=== PATIENT | male | born 1945 | race Caucasian/White ===

== ENCOUNTER 2021-01-11 10:05 | Inpatient (IN) | payer MEDICARE, MEDICAID, SELFPAY ==
[2021-01-11] VITALS (39 sets, daily range): BP systolic 60–179; BP diastolic 32–100; PULSE 88–136; RESP 13–100; TEMP 36.2–36.7; O2SAT 16–100; BMI 32.5
--- NOTE | ~2021-01-11 | US_ITS ---
EXAMINATION: US renal BI DATE: 01/12/2021 11:21 INDICATION: Elevated creatinine TECHNIQUE: Multiple ultrasound grayscale images of the kidneys were obtained. COMPARISON: None. FINDINGS: The right kidney measures 9.0 x 5.2 x 5.3 cm. The left kidney measures 11.0 x 5.5 x 4.7 cm. The kidne ys demonstrate normal echogenicity. Likely age-related mild diffuse renal cortical atrophy at both ki dneys. 4.1 cm anechoic cyst at the upper pole of the left kidney. There is a second 4.2 cm anechoic l esion at the lower pole with small amount of hypoechoic material without evident internal vascular fl ow on color Doppler along the deep margin of the lesion, unclear whether this represents debris or so lid tissue the latter which would raise concern for malignancy. There is no hydronephrosis in either kidney. No stones identified. The bladder is decompressed around a Alan catheter which limits evalu ation. IMPRESSION: 1. Likely age-related diffuse mild bilateral renal cortical atrophy. No hydronephrosis. 2. A couple approximately 4 cm anechoic cystic lesions at the left kidney. The lesion at the lower po le demonstrates a region of peripheral hypoechogenicity, unclear whether avascular debris or soft tis khadra the latter which would raise concern for renal cell carcinoma. If patient would be a surgical can didate in the setting of a renal cell carcinoma would recommend further evaluation with pre and postc ontrast MRI or CT. Reviewed, dictated and finalized at location A. IMPRESSION: 1. Likely age-related diffuse mild bilateral renal cortical atrophy. No hydron ephrosis. 2. A couple approximately 4 cm anechoic cystic lesions at the left kidney. The lesion at the lower pole demonstrates a region of peripheral hypoechogenicity, unclear whether avascular debris or soft tissue the latter which would raise co ncern for renal cell carcinoma. If patient would be a surgical candidate in the setting of a renal cell carcinoma would recommend further evaluation with pre and postcontrast MRI or CT.
--- NOTE | ~2021-01-11 | XR_ITS ---
EXAMINATION: XR chest 1V portable DATE: 01/11/2021 11:56 INDICATION: Shortness of breath. TECHNIQUE: A single frontal view of the chest was obtained. COMPARISON: PET CT 10/14/2017 FINDINGS: There are airspace opacities in the perihilar regions and lower lung zones. No pleural effu kylie or pneumothorax. Cardiomegaly is noted. IMPRESSION: 1. Airspace opacities in the perihilar regions and lower lung zones, consistent with atelectasis vers us pneumonia. 2. Cardiomegaly. Reviewed, dictated and finalized at location A. IMPRESSION: 1. Airspace opacities in the perihilar regions and lower lung zones, consistent with atelectasis versus pneumonia. 2. Cardiomegaly.
--- NOTE | ~2021-01-11 | US_ITS ---
EXAMINATION: US venous doppler [facility] DATE: 01/11/2021 15:42 INDICATION: Lower limb edema. TECHNIQUE: Grayscale ultrasound images without and with compression and Doppler ultrasound images of the bilateral lower extremity veins were obtained. COMPARISON: None. FINDINGS: The visualized portions of right common femoral vein, profunda (deep) femoral vein, femoral vein, pop liteal vein, peroneal veins, posterior tibial veins, and greater saphenous vein outflow are patent. The visualized portions of left common femoral vein, profunda femoral vein, femoral vein, popliteal v ein, peroneal veins, posterior tibial veins, and greater saphenous vein outflow are patent. IMPRESSION: 1. No deep venous thrombosis. Reviewed, dictated and finalized at location A.
--- NOTE | ~2021-01-11 | CT_ITS ---
EXAMINATION: CT brain wo con DATE: 01/11/2021 12:13 INDICATION: Altered mental status TECHNIQUE: Computed tomography (CT) of the head was performed without intravenous contrast. Sagittal and coronal reconstructions were performed. The mA was adjusted according to patient size. Iterative reconstruction technique was employed. The dose-length product was 605.33 mGy-cm. COMPARISON: None FINDINGS: Small old lacunar infarcts in the right frontal lobe waggoner radiata, the left basal ganglia extending from the lentiform nucleus across the internal capsule to the caudate nucleus, the left thalamus, th e right peritrigonal white matter and the right cerebellar hemisphere. No acute intracranial hemorrha ge, acute infarction or abnormal extra axial fluid collection. There is mild scattered white matter h ypoattenuation consistent with chronic small vessel ischemic disease. Symmetric prominence of the sul ci consistent with mild age-appropriate diffuse cerebral volume loss. Ventricles are normal and symm etric. No mass/mass effect. Changes of bilateral intraocular lens replacement. The orbits and mastoid air cells are normal. Mild mucosal thickening throughout the paranasal sinuses with dependently laye ring mucus in the left maxillary and left sphenoid sinuses. Intracranial calcified cerebral atheroscl erosis is noted. IMPRESSION: 1. A few scattered small old lacunar infarcts as detailed above. No acute intracranial process. 2. Age-related changes including mild diffuse volume loss and mild scattered white matter hypoattenua tion consistent with chronic small vessel ischemic disease. 3. Sinus disease including layering mucus in the left maxillary and sphenoid sinuses which could be s een with acute sinusitis. Reviewed, dictated and finalized at location B. IMPRESSION: 1. A few scattered small old lacunar infarcts as detailed above. No acute intra cranial process. 2. Age-related changes including mild diffuse volume loss and mild scattered wh ite matter hypoattenuation consistent with chronic small vessel ischemic diseas e. 3. Sinus disease including layering mucus in the left maxillary and sphenoid si nuses which could be seen with acute sinusitis.
[2021-01-11] MEDS: SODIUM CHLORIDE 0.9% IV 1,000 ML 999 ML IV CONT ×2 (10:05→12:34)
--- NOTE | 2021-01-11 10:12 | ECG_ITS ---
Measurements Intervals [place] Rate: 97 P: HI: 0 QRS: 3 QRSD: 101 T: 45 QT: 340 QTc: 433 Interpretive Statements ATRIAL FIBRILLATION BASELINE ARTIFACT- II, III, AVR, AVF, V1-V6 ABNORMAL ECG Electronically Signed On 01-11-2021 10:20:00 CDT by Kimani Vargas D.O.
[2021-01-11] MEDS: SODIUM CHLORIDE 0.9% IV 1,000 ML 150 ML IV CONT (10:22)
[2021-01-11 10:34] LABS: Alveolar/Arterial O2 Gradient 390.3 mmHg; Base Excess ABG -17.2 mEq/l (+/-2.0); Fractional Inspired Oxygen 100 %; HCO3 ABG 8.4 mEq/l (22.0-26.0); Oxygen Content ABG 17.8 %vol (16.0-22.0); Oxygen Saturation ABG 99.6 % (95.0-100.0); Oxyhemoglobin 98.5 % THb (90.0-100.0); PO2 ABG 302.1 mmHg (80.0-100.0); PO2 FiO2 Ratio Arterial Blood 3.02 %; Total Hemoglobin 12.3 g/dL (12.0-18.0)
[2021-01-11 10:37] LABS: PCO2 ABG 20.6 mmHg (35.0-45.0); pH ABG 7.228 (7.350-7.450)
[2021-01-11 10:38] LABS: Device NON-REBREATHER MASK; Modified Allen's Test Pass; Site Drawn LEFT RADIAL
[2021-01-11 11:00] LABS: Basophils Percent Auto 0.5 % (0.2-1.2); Eosinophils Absolute Auto 0.1 K/mm3 (0-0.3); Eosinophils Percent Auto 1.6 % (0-4.4); Hematocrit 39.1 % (42.0-52.0); Hemoglobin 12.4 g/dL (14.0-18.0); Immature Granulocyte Absolute 0.08 K/mm3 (0.00-0.031); Immature Granulocyte Percent A 1.1 % (0-0.5); Lymphocytes Absolute Auto 1.58 K/mm3 (0.9-3.2); Lymphocytes Percent Auto 21.5 % (18.3-44.2); Mean Corpuscular HGB Conc 31.7 g/dl (32-36); Mean Corpuscular Hemoglobin 29.7 pg (26-34); Mean Corpuscular Volume 93.5 fl (80-100); Mean Platelet Volume 10.7 fl (7.4-10.4); Monocytes Absolute Auto 0.9 K/mm3 (0.1-0.6); Monocytes Percent Auto 11.7 % (2.6-8.5); Neutrophils Absolute Auto 4.7 K/mm3 (1.3-6.7); Neutrophils Percent Auto 63.6 % (45.5-73.1); Platelet Count Result 158 k/mm3 (150-375); Red Blood Count 4.18 M/mm3 (4.6-6.20); Red Cell Distribution Width 18.1 % (11.5-14.5); White Blood Count 7.4 K/mm3 (4.5-10.0)
[2021-01-11 11:09] LABS: Alanine Aminotransferase 7 U/L (4-50); Albumin Level 3.5 g/dL (3.5-5.1); Alkaline Phosphatase 126 U/L (38-126); Anion Gap 16 mmol/L (8-16); Aspartate Amino Transferase 16 U/L (17-59); Bilirubin,Total 0.5 mg/dL (0.2-1.3); Blood Urea Nitrogen 77 mg/dL (9-20); Calcium 8.7 mg/dL (8.4-10.2); Carbon Dioxide 10 mmol/L (22-30); Chloride 113 mmol/L (98-107); Estimated CRCL calculation 17 ml/min; Estimated Glomerular Filt Rate 13; Glucose 237 mg/dL (65-110); Potassium 4.9 mmol/L (3.4-5.0); Prothrombin Time 13.3 Seconds (11.1-14.7); Sodium 139 mmol/L (137-145)
[2021-01-11 11:10] LABS: Lactic Acid Reflex 1.2 mmol/L (0.7-2.1)
[2021-01-11 11:21] LABS: NT Pro B Type Natriuretic Pept 5790 pg/mL (5-100); Troponin I 0.022 ng/mL (0.000-0.034)
--- NOTE | 2021-01-11 12:07 | PC.NURSE ---
Pt off floor to CT scan
[2021-01-11] MEDS: SODIUM BICARBONATE 8.4% 50 MEQ/50 ML SYRINGE IV PUSH ×2 (12:14)
[2021-01-11] MEDS: SODIUM BICARBONATE 8.4% 150 MEQ in DEXTROSE 5% 1,000 ML 950 ML 50 MEQ IV CONT (12:38)
--- NOTE | 2021-01-11 13:56 | ED.GENADULT ---
HPI - General Adult General Chief complaint: Weakness Stated complaint: alt loc Time Seen by Provider: 01/11/21 10:12 Source: patient Mode of arrival: EMS Limitations: altered mental status History of Present Illness HPI narrative: 75-year-old with a history of diabetes, hypertension, CKD was brought in from his doctor's office with complaints of altered mental status, shortness of breath. Patient states that he woke up to go to see his doctor this morning and all of a sudden started having difficulty breathing and as per the EMS patient was in a lot of consciousness. Not much of history could be obtained from the patient. Upon EMS arrival his initial blood pressure was 60/40. And SPO2 was in the 80s. Onset (ago): hour(s) (1) Associated symptoms: denies other symptoms Related Data Home Medications Medication Instructions Recorded Confirmed allopurinol 01/11/21 01/11/21 ammonium lactate applic TOPICAL 01/11/21 aspirin 01/11/21 atorvastatin 01/11/21 bumetanide 01/11/21 bumetanide 01/11/21 carbidopa-levodopa tablet 01/11/21 diltiazem HCl [Tiadylt ER] PO 01/11/21 empagliflozin [Jardiance] mg 01/11/21 insulin detemir U-100 [Levemir unit SUBCUT 01/11/21 FlexTouch U-100 Insuln] losartan 01/11/21 metoprolol tartrate 01/11/21 sitagliptin [Januvia] mg 01/11/21 Allergies Allergy/AdvReac Type Severity Reaction Status Date / Time latex Allergy Unknown Verified 01/11/21 10:17 Review of Systems Review of Systems: ROS unobtainable: Yes unobtainable due to mental status PMFSH Family History Family History Sibling Hypertension Family history of diabetes mellitus in first degree relative Mother Family history of malignant neoplasm Social History Social History Alcohol intake: never Exam Narrative: GENERAL: well-nourished, lethargic in moderate respiratory distress . HEAD: Normocephalic, atraumatic. EYES: PERRLA and EOMI. ENT: Nares clear, no rhinorrhea or epistaxis. Mucous membranes moist. NECK: Supple. CHEST: Clear to auscultation. No respiratory distress. HEART: Regular rate and rhythm. No murmur heard. Normal peripheral pulses. ABDOMEN: Soft, nontender, nondistended, normal active bowel sounds. EXTREMITIES: Normal range of motion. No edema. SKIN: Warm, dry, no rash. NEURO: No focal deficits. Alert PSYCH: Normal mood and affect. Course Course Emergency Course: Upon arrival patient was hypertensive and very lethargic I have given him 3 L of IV fluids. Patient became more alert. His blood pressure has been 110/87, 126/24, discussed with the Dr. Pulido and Dr. Lakhani patient has been stable patient should be admitted to the IMU. Vital Signs Vital signs: Vital Signs Temperature 36.2 C L 01/11/21 10:03 Pulse Rate 102 H 01/11/21 10:03 Respiratory Rate 20 01/11/21 10:03 Blood Pressure 67/44 L 01/11/21 10:03 Pulse Oximetry 100 01/11/21 10:03 Temperature 36.2 C L 01/11/21 10:03 Pulse Rate 104 H 01/11/21 13:54 Respiratory Rate 21 H 01/11/21 13:54 Blood Pressure 101/79 01/11/21 13:54 Pulse Oximetry 100 01/11/21 13:54 Medical Decision Making Vital Signs Vital Signs: Vital Signs Temperature 36.2 C L 01/11/21 10:03 Pulse Rate 102 H 01/11/21 10:03 Respiratory Rate 20 01/11/21 10:03 Blood Pressure 67/44 L 01/11/21 10:03 Pulse Oximetry 100 01/11/21 10:03 Temperature 36.2 C L 01/11/21 10:03 Pulse Rate 104 H 01/11/21 13:54 Respiratory Rate 21 H 01/11/21 13:54 Blood Pressure 101/79 01/11/21 13:54 Pulse Oximetry 100 01/11/21 13:54 Lab Data Result diagrams: 01/11/21 10:30 01/11/21 10:30 Labs: Lab Results 01/11/21 01/11/21 01/11/21 Range/Units 10:30 10:30 10:30 WBC 7.4 (4.5-10.0) K/mm3 RBC 4.18 L (4.6-6.20) M/mm3 Hgb 12.4 L (14.0-18.0) g/dL Hct 39.1 L (42.0-52.0)
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
[2021-01-11 14:08] LABS: Beta-Hydroxybutyrate/Acetoacetate 0.07 mmol/L (0.02-0.27)
[2021-01-11 14:29] LABS: Add Urine Microscopic? YES; Appearance Urine Clear (Clear); Bilirubin Urine Negative (Negative); Blood Urine Negative (Negative); Color Urine Yellow (Yellow); Glucose Urine UA 1+ mg/dL (Negative); Ketones Urine Negative (Negative); Leukocyte Esterase Ur Negative LEU/UL (Negative); Mucus Urine Rare /lpf; Nitrate Urine Negative (Negative); Protein Urine 2+ mg/dL (Negative); RBC Urine 0-2 /hpf (0-2); Specific Grav Ur 1.018 (1.001-1.035); Squamous Epithelial Cell Urine Rare /hpf (Few); Urobilinogen Urine Negative mg/dL (<2.0); WBC Urine 0-3 /hpf
--- NOTE | 2021-01-11 14:37 | PC.NURSE ---
Spoke with for update on patient
--- NOTE | 2021-01-11 16:17 | PM.CNNEP ---
Assessment and Plan Assessment and plan (1) ESME (acute kidney injury): Code(s): N17.9 - Acute kidney failure, unspecified Status: Acute Assessment and Plan: the patient has acute kidney injury. I am assuming his normal creatinine is better than this because he is on Jardiance which generally is not given if the GFR is below 20. This is most likely related to his hypotension . He could also have infection. However he does not have a fever or white count. He has some blood cultures that are pending and he is on antibiotics. He could have obstruction because he has a history of BPH. Will check a renal ultrasound. rhabdomyolysis is always a possibility as well. Will check a CPK allergic interstitial nephritis is possible because he was just in the hospital and may have gotten antibiotics. However usually hypotension is not part of this picture. Glomerulonephritis would be unusual in this clinical setting as well. To evaluate this am going to get a renal ultrasound, urine electrolytes, CPK, and cortisol level. (2) Chronic kidney disease: Code(s): N18.9 - Chronic kidney disease, unspecified Status: Acute Assessment and Plan: the patient has chronic kidney disease. He sees Dr. ayoub for this. It is likely due to diabetes and hypertension. We do not know his baseline (3) Acute hypotension: Code(s): I95.9 - Hypotension, unspecified Status: Acute Assessment and Plan: the patient has hypotension. Etiology is unclear. He probably is dehydrated. He was on diuretics at home. Possibly he is not eating very well. In addition he is on Jardiance and his blood sugars may not be perfectly well controlled so he could have some glucosuria and diuretic effect from that. we can check a cortisol level as well He is getting IV fluids. (4) Metabolic acidosis: Code(s): E87.2 - Acidosis Status: Acute Assessment and Plan: Bicarbonate level is low. Lactic acid and beta hydroxybutyrate are okay. His anion gap is 16, this is a little bit on the high side. This may be due to uremic toxins. his pH is low. He is compensating respiratory forrest adequately. His blood pressure is low and so he is getting IV fluids. If we just replace with saline his bicarbonate level is going to get worse because his bad kidneys are not going to generate bicarbonate. Therefore, he is getting a bicarbonate drip (5) Obstructive sleep apnea: Code(s): G47.33 - Obstructive sleep apnea (adult) (pediatric) Status: Chronic (6) BPH (benign prostatic hyperplasia): Code(s): N40.0 - Benign prostatic hyperplasia without lower urinary tract symptoms Status: Chronic Assessment and Plan: he has a history of this. Will check a renal ultrasound. (7) Atrial fibrillation: Code(s): I48.91 - Unspecified atrial fibrillation Status: Chronic Assessment and Plan: his heart rate is fairly well controlled right now. He has a watchman device (8) Hypertension: Code(s): I10 - Essential (primary) hypertension Status: Chronic Assessment and Plan: His blood pressure was low on admission. We will hold his antihypertensives (9) History of CVA (cerebrovascular accident): Code(s): Z86.73 - Personal history of transient ischemic attack (TIA), and cerebral infarction without residual deficits Status: Chronic Assessment and Plan: he had multiple strokes in the past related to his atrial fibrillation. Things settle down once he was on blood thinners and then converted to the watchman device. (10) Hyperlipidemia: Code(s): E78.5 - Hyperlipidemia, unspecified Status: Chronic Assessment and Plan: he is on atorvastatin at home (11) DM2 (diabetes mellitus, type 2): Code(s): E11.9 - Type 2 diabetes mellitus without complications Status: Chronic Asses
--- NOTE | 2021-01-11 16:36 | PC.NURSE ---
Called lab to add on [place] Random, CK
[2021-01-11 17:10] LABS: Creatine Kinase 54 U/L (55-170)
[2021-01-11 17:22] LABS: Troponin I 0.041 ng/mL (0.000-0.034)
[2021-01-11 17:54] LABS: Sodium Urine Random 60 meq/L
[2021-01-11 17:55] LABS: Creatinine Urine 76.6 mg/dL; Total Protein Urine Random 94 mg/dL; Ur Ttl Prot Creatinine Ratio 1.23 mg/mg (0-0.20)
[2021-01-11 18:53] LABS: Cortisol Random 7.77 ug/dL
--- NOTE | 2021-01-11 18:53 | PC.NURSE ---
Fluid order DC'd, discussed with Dr Moya
--- NOTE | 2021-01-11 20:01 | ADMGEN ---
This patient, Juve Cardona, was admitted to IMU Room 210-01. Patient/family oriented to hospital policies and general routines including ID bracelet, bed and alarms, visiting hours, pain management, procedures, bathroom and other care routines, personal items, smoking policy, room service/diet, and visiting hours. Information on how to activate the Rapid Response Team has been discussed. Patient/Family are encouraged to report perceived risks to care and to ask questions if they do not understand what they are told or what they should do.
[2021-01-11 20:28] LABS: Troponin I 0.054 ng/mL (0.000-0.034)
[2021-01-11 20:48] LABS: Glucose Point of Care 180 mg/dl (65-105)
[2021-01-11] MEDS: dilTIAZem HCL CD 180 MG CAP.ER.24H 360 MG PO (23:24)
[2021-01-11] MEDS: ACETAMINOPHEN/CODEINE (*CRX) 300/30 MG TABLET 1 TAB PO (23:24)
[2021-01-11] MEDS: CODEINE SULFATE (*CRX) 30 MG TABLET PO (23:25)
[2021-01-12] VITALS (21 sets, daily range): BP systolic 102–142; BP diastolic 61–86; PULSE 57–140; RESP 16–22; TEMP 36.1–36.7; O2SAT 95–100
[2021-01-12] MEDS: LOSARTAN POTASSIUM 100 MG TABLET PO ×2 (00:20→10:45)
[2021-01-12] MEDS: METOPROLOL TARTRATE 25 MG TABLET PO ×3 (00:22→20:08)
[2021-01-12 05:09] LABS: Basophils Percent Auto 0.5 % (0.2-1.2); Eosinophils Absolute Auto 0.2 K/mm3 (0-0.3); Eosinophils Percent Auto 2.4 % (0-4.4); Hematocrit 36.3 % (42.0-52.0); Hemoglobin 11.8 g/dL (14.0-18.0); Immature Granulocyte Absolute 0.07 K/mm3 (0.00-0.031); Immature Granulocyte Percent A 1.1 % (0-0.5); Lymphocytes Absolute Auto 1.89 K/mm3 (0.9-3.2); Lymphocytes Percent Auto 28.6 % (18.3-44.2); Mean Corpuscular HGB Conc 32.5 g/dl (32-36); Mean Corpuscular Hemoglobin 29.2 pg (26-34); Mean Corpuscular Volume 89.9 fl (80-100); Mean Platelet Volume 10.8 fl (7.4-10.4); Monocytes Absolute Auto 0.9 K/mm3 (0.1-0.6); Monocytes Percent Auto 14.2 % (2.6-8.5); Neutrophils Absolute Auto 3.5 K/mm3 (1.3-6.7); Neutrophils Percent Auto 53.2 % (45.5-73.1); Platelet Count Result 141 k/mm3 (150-375); Red Blood Count 4.04 M/mm3 (4.6-6.20); Red Cell Distribution Width 17.6 % (11.5-14.5); White Blood Count 6.6 K/mm3 (4.5-10.0)
[2021-01-12 05:26] LABS: Alanine Aminotransferase 9 U/L (4-50); Albumin Level 3.2 g/dL (3.5-5.1); Alkaline Phosphatase 115 U/L (38-126); Anion Gap 10 mmol/L (8-16); Aspartate Amino Transferase 14 U/L (17-59); Bilirubin,Total 0.4 mg/dL (0.2-1.3); Blood Urea Nitrogen 60 mg/dL (9-20); Calcium 8.4 mg/dL (8.4-10.2); Carbon Dioxide 16 mmol/L (22-30); Chloride 116 mmol/L (98-107); Estimated CRCL calculation 21 ml/min; Estimated Glomerular Filt Rate 18; Glucose 138 mg/dL (65-110); Phosphorus 4.3 mg/dL (2.5-4.5); Potassium 3.8 mmol/L (3.4-5.0); Sodium 142 mmol/L (137-145)
[2021-01-12 08:37] LABS: Glucose Point of Care 166 mg/dl (65-105)
[2021-01-12] MEDS: ATORVASTATIN 40 MG TABLET 80 MG PO (10:44)
[2021-01-12] MEDS: BUMETANIDE 0.5 MG TABLET 1.5 MG PO (10:44)
[2021-01-12] MEDS: CARBIDOPA/LEVODOPA 25/100 MG TABLET 1 TABLET PO ×3 (10:44→16:52)
[2021-01-12] MEDS: SODIUM BICARBONATE 8.4% 150 MEQ in DEXTROSE 5% 1,000 ML 950 ML 50 MEQ IV CONT (10:46)
[2021-01-12] MEDS: TIZANIDINE HCL 4 MG TABLET PO ×2 (10:46→16:52)
[2021-01-12] MEDS: allopurinoL 300 MG TABLET PO (10:47)
[2021-01-12] MEDS: ASPIRIN 81 MG ENTERIC TABLET PO (10:47)
[2021-01-12] MEDS: ACETAMINOPHEN/CODEINE (*CRX) 300/30 MG TABLET 1 TAB PO (10:52)
--- NOTE | 2021-01-12 11:00 | PM.PNNEP ---
Progress Note: A&P Assessment and Plan (1) ESME (acute kidney injury): Code(s): N17.9 - Acute kidney failure, unspecified Status: Acute Assessment and Plan: the patient has acute kidney injury. Renal ultrasound has not been done yet. Urine electrolytes are non pre renal. CPK is not elevated. This is most likely related to his hypotension . Infection could be playing a role as well. He is on antibiotics. Cultures are pending. Will continue to give IV fluids. (2) Chronic kidney disease: Code(s): N18.9 - Chronic kidney disease, unspecified Status: Acute Assessment and Plan: the patient has chronic kidney disease. He sees Dr. ayoub for this. It is likely due to diabetes and hypertension. We do not know his baseline (3) Acute hypotension: Code(s): I95.9 - Hypotension, unspecified Status: Acute Assessment and Plan: the patient has hypotension. Etiology is unclear. He probably is dehydrated. He was on diuretics at home which would nullify the urine electrolytes. Cortisol level is quite low considering how hypotensive he is. Will check Cortrosyn stim test. Continue IV fluids. (4) Metabolic acidosis: Code(s): E87.2 - Acidosis Status: Acute Assessment and Plan: Bicarbonate level is low. Lactic acid and beta hydroxybutyrate are okay. His delta anion gap was much smaller than the delta bicarb. This is a mixed acid-base disorder with metabolic acidosis with anion gap and also metabolic acidosis with normal anion gap. Probably all from the kidneys. His bicarbonate level has increased from 10-16. Will continue IV fluids with bicarb for 1 more day then Reassess. (5) Obstructive sleep apnea: Code(s): G47.33 - Obstructive sleep apnea (adult) (pediatric) Status: Chronic (6) BPH (benign prostatic hyperplasia): Code(s): N40.0 - Benign prostatic hyperplasia without lower urinary tract symptoms Status: Chronic Assessment and Plan: he has a history of this. Will check a renal ultrasound. (7) Atrial fibrillation: Code(s): I48.91 - Unspecified atrial fibrillation Status: Chronic Assessment and Plan: his heart rate is fairly well controlled right now. He has a watchman device (8) Hypertension: Code(s): I10 - Essential (primary) hypertension Status: Chronic Assessment and Plan: His blood pressure was low on admission. We will hold his antihypertensives (9) History of CVA (cerebrovascular accident): Code(s): Z86.73 - Personal history of transient ischemic attack (TIA), and cerebral infarction without residual deficits Status: Chronic Assessment and Plan: he had multiple strokes in the past related to his atrial fibrillation. Things settle down once he was on blood thinners and then converted to the watchman device. (10) Hyperlipidemia: Code(s): E78.5 - Hyperlipidemia, unspecified Status: Chronic Assessment and Plan: he is on atorvastatin at home (11) DM2 (diabetes mellitus, type 2): Code(s): E11.9 - Type 2 diabetes mellitus without complications Status: Chronic Assessment and Plan: On insulin sliding scale Subjective Date/time seen: 01/12/21 11:00 Interval history: Juve is feeling better today. No chest pain or shortness of breath. He has an appetite Review of Systems Cardiovascular: Cardiovascular: Reports no additional cardiovascular complaints Respiratory: Respiratory: Reports no additional respiratory complaints Gastrointestinal: Gastrointestinal: Reports no additional gastrointestinal complaints Genitourinary: Genitourinary: Reports no additional male genitourinary complaints Exam Narrative: WDWN in NAD skin no rash head ncat lungs clear cor reg no rub abd BS+ nontender and soft ext no edema. Objective Data Vital Signs Vital Signs: Vital Signs - 24 hr
[2021-01-12] MEDS: COSYNTROPIN 0.25 MG/ML VIAL IV PUSH (11:59)
[2021-01-12] MEDS: INSULIN ASPART (*BKC) 100 UNITS/ML SUB-Q (12:25)
[2021-01-12 12:35] LABS: Cortisol Baseline 7.39 ug/dL
[2021-01-12 12:43] LABS: Glucose Point of Care 247 mg/dl (65-105)
--- NOTE | 2021-01-12 14:30 | PM.IMPN ---
Progress Note: A&P Assessment and Plan (1) Metabolic acidosis: Code(s): E87.2 - Acidosis Status: Acute Assessment and Plan: Unsure etiology. Unsure if it is due to the kidney failure or if the patient is septic. await culture, no definite source, pt is on sodium bicarbonate drip pt is being watched by nephrology pt started on iv zosyn (2) Acute hypotension: Code(s): I95.9 - Hypotension, unspecified Status: Acute Assessment and Plan: sp fluids (3) ESME (acute kidney injury): Code(s): N17.9 - Acute kidney failure, unspecified Status: Acute Assessment and Plan: The patient tells me that he does have stage 4 chronic kidney disease. seen by nephrology (4) Atrial fibrillation: Code(s): I48.91 - Unspecified atrial fibrillation Status: Chronic Assessment and Plan: Continue with home medications (5) Hypertension: Code(s): I10 - Essential (primary) hypertension Status: Chronic Assessment and Plan: watch bp in hospital. (6) History of CVA (cerebrovascular accident): Code(s): Z86.73 - Personal history of transient ischemic attack (TIA), and cerebral infarction without residual deficits Status: Chronic Assessment and Plan: Resume home medications. (7) History of DVT (deep vein thrombosis): Code(s): Z86.718 - Personal history of other venous thrombosis and embolism Status: Chronic Assessment and Plan: Resume home medications. (8) DM2 (diabetes mellitus, type 2): Code(s): E11.9 - Type 2 diabetes mellitus without complications Status: Chronic Assessment and Plan: Accu-Cheks AC and HS. Resume Levemir and Januvia. Check A1c. Sliding scale insulin. (9) Hyperlipidemia: Code(s): E78.5 - Hyperlipidemia, unspecified Status: Chronic Assessment and Plan: Resume home medications. (10) Gout: Code(s): M10.9 - Gout, unspecified Status: Chronic Assessment and Plan: Resume home medication (11) Parkinsons: Code(s): G20 - Parkinson's disease Status: Chronic Assessment and Plan: Resume home medication (12) BPH (benign prostatic hyperplasia): Code(s): N40.0 - Benign prostatic hyperplasia without lower urinary tract symptoms Status: Chronic Assessment and Plan: Resume home medications (13) Obstructive sleep apnea: Code(s): G47.33 - Obstructive sleep apnea (adult) (pediatric) Status: Chronic Assessment and Plan: Continue with home CPAP machine and home oxygen. Subjective Date/time seen: 01/12/21 14:30 Interval history: 75-year-old male patient who lives at home with his . He has a history of diabetes hypertension and chronic kidney disease. The patient was sent here from his doctor's office today with complaints of altered mental status and shortness of breath. ADmitted for metabolic acidosis and ESME. The patient stated that he does have a history of stage IV renal disease and sees a skin therapist but does not recall the name of the skin therapist. Patient's BUN was 77 creatinine 4.40 and his GFR is 13. His blood sugars 237. A Alan catheter was placed while the patient was in the emergency room. His BNP is 5790. His anion gap is 16. His head CT was read as a few scattered mild old lacunar infarcts as detailed above. Age-related changes including mild diffuse volume loss and mild scattered white matter hypoattenuation consistent with small-vessel ischemic disease. Sinus disease including layering mucus in the left maxillary and sphenoid sinuses which could be seen with acute sinusitis. The patient had empirically been started on Zosyn renally dosed for sepsis. Pt does not have any specific complaints today. Review of Systems Review of Systems: All systems reviewed & are unremarkable except as noted in HPI and below Exam Const: General: cooperative and healthy appearing; No in dist
--- NOTE | 2021-01-12 15:38 | PCCCNOTE ---
On 01/12/21, the student, [Tania May], provided care and completed [facility] on this patient. I have reviewed the student's documentation and agree with the findings.
[2021-01-12 16:02] LABS: Anion Gap 10 mmol/L (8-16); Blood Urea Nitrogen 58 mg/dL (9-20); Calcium 8.4 mg/dL (8.4-10.2); Carbon Dioxide 17 mmol/L (22-30); Chloride 111 mmol/L (98-107); Estimated CRCL calculation 24 ml/min; Estimated Glomerular Filt Rate 21; Glucose 173 mg/dL (65-110); Potassium 3.9 mmol/L (3.4-5.0); Sodium 138 mmol/L (137-145)
[2021-01-12 16:48] LABS: Glucose Point of Care 188 mg/dl (65-105)
[2021-01-12] MEDS: dilTIAZem HCL CD 180 MG CAP.ER.24H 360 MG PO (16:52)
--- NOTE | 2021-01-12 19:12 | PC.NURSE ---
Notified Dr Corona that Patient is chronic AFIB and there is not a blood thinner ordered for patient.
[2021-01-12] MEDS: INSULIN DETEMIR 100 UNITS/ML 40 UNITS SUB-Q (20:09)
[2021-01-12 21:55] LABS: Glucose Point of Care 274 mg/dl (65-105)
[2021-01-13] VITALS (16 sets, daily range): BP systolic 119–155; BP diastolic 64–79; PULSE 54–84; RESP 15–20; TEMP 36.1–36.8; O2SAT 97–100
[2021-01-13] MEDS: ACETAMINOPHEN/CODEINE (*CRX) 300/30 MG TABLET 1 TAB PO ×3 (00:15→18:18)
[2021-01-13 04:48] LABS: Hematocrit 35.5 % (42.0-52.0); Hemoglobin 11.8 g/dL (14.0-18.0); Mean Corpuscular HGB Conc 33.2 g/dl (32-36); Mean Corpuscular Hemoglobin 29.9 pg (26-34); Mean Corpuscular Volume 89.9 fl (80-100); Mean Platelet Volume 10.3 fl (7.4-10.4); Platelet Count Result 130 k/mm3 (150-375); Red Blood Count 3.95 M/mm3 (4.6-6.20); Red Cell Distribution Width 17.8 % (11.5-14.5); White Blood Count 7.2 K/mm3 (4.5-10.0)
[2021-01-13 04:58] LABS: Albumin Level 3.5 g/dL (3.5-5.1); Anion Gap 9 mmol/L (8-16); Blood Urea Nitrogen 50 mg/dL (9-20); Calcium 8.5 mg/dL (8.4-10.2); Carbon Dioxide 23 mmol/L (22-30); Chloride 106 mmol/L (98-107); Estimated CRCL calculation 26 ml/min; Estimated Glomerular Filt Rate 24; Glucose 136 mg/dL (65-110); Phosphorus 3.5 mg/dL (2.5-4.5); Potassium 3.5 mmol/L (3.4-5.0); Sodium 138 mmol/L (137-145)
[2021-01-13 05:06] LABS: NT Pro B Type Natriuretic Pept 9010 pg/mL (5-100)
[2021-01-13] MEDS: BUMETANIDE 0.5 MG TABLET 1.5 MG PO (08:42)
[2021-01-13] MEDS: allopurinoL 300 MG TABLET PO (08:46)
[2021-01-13] MEDS: dilTIAZem HCL CD 180 MG CAP.ER.24H 360 MG PO (08:46)
[2021-01-13] MEDS: ATORVASTATIN 40 MG TABLET 80 MG PO (08:49)
[2021-01-13] MEDS: TIZANIDINE HCL 4 MG TABLET PO ×2 (08:49→18:14)
[2021-01-13] MEDS: CARBIDOPA/LEVODOPA 25/100 MG TABLET 1 TABLET PO ×3 (08:49→18:14)
[2021-01-13] MEDS: METOPROLOL TARTRATE 25 MG TABLET PO ×2 (08:50→21:13)
[2021-01-13] MEDS: LOSARTAN POTASSIUM 100 MG TABLET PO (08:50)
[2021-01-13] MEDS: ASPIRIN 81 MG ENTERIC TABLET PO (08:50)
[2021-01-13 08:53] LABS: Glucose Point of Care 103 mg/dl (65-105)
[2021-01-13] MEDS: SODIUM BICARBONATE 8.4% 150 MEQ in DEXTROSE 5% 1,000 ML 950 ML 50 MEQ IV CONT (10:39)
--- NOTE | 2021-01-13 11:49 | PM.PNNEP ---
Progress Note: A&P Assessment and Plan (1) ESME (acute kidney injury): Code(s): N17.9 - Acute kidney failure, unspecified Status: Acute Assessment and Plan: the patient has acute kidney injury. Renal ultrasound shows cortical thinning, simple cysts, and 1 complex cyst. Urine electrolytes are non pre renal. CPK is not elevated. Getting IV fluids. Will switch to saline His creatinine continues to improve. (2) Chronic kidney disease: Code(s): N18.9 - Chronic kidney disease, unspecified Status: Acute Assessment and Plan: the patient has chronic kidney disease. He sees Dr. ayoub for this. It is likely due to diabetes and hypertension. We do not know his baseline (3) Acute hypotension: Code(s): I95.9 - Hypotension, unspecified Status: Acute Assessment and Plan: the patient has hypotension. Etiology is unclear. He probably is dehydrated. The patient had a Cortrosyn stim test ordered for yesterday but the post cortisol is were not done. Will repeat today. (4) Metabolic acidosis: Code(s): E87.2 - Acidosis Status: Acute Assessment and Plan: Bicarbonate level is low. Lactic acid and beta hydroxybutyrate are okay. This is resolved. (5) Obstructive sleep apnea: Code(s): G47.33 - Obstructive sleep apnea (adult) (pediatric) Status: Chronic (6) BPH (benign prostatic hyperplasia): Code(s): N40.0 - Benign prostatic hyperplasia without lower urinary tract symptoms Status: Chronic Assessment and Plan: he has a history of this. Will check a renal ultrasound. (7) Atrial fibrillation: Code(s): I48.91 - Unspecified atrial fibrillation Status: Chronic Assessment and Plan: his heart rate is fairly well controlled right now. He has a watchman device (8) Hypertension: Code(s): I10 - Essential (primary) hypertension Status: Chronic Assessment and Plan: His blood pressure was low on admission. This is better and antihypertensives are being folded in. (9) History of CVA (cerebrovascular accident): Code(s): Z86.73 - Personal history of transient ischemic attack (TIA), and cerebral infarction without residual deficits Status: Chronic Assessment and Plan: he had multiple strokes in the past related to his atrial fibrillation. Things settle down once he was on blood thinners and then converted to the watchman device. (10) Hyperlipidemia: Code(s): E78.5 - Hyperlipidemia, unspecified Status: Chronic Assessment and Plan: he is on atorvastatin at home (11) DM2 (diabetes mellitus, type 2): Code(s): E11.9 - Type 2 diabetes mellitus without complications Status: Chronic Assessment and Plan: On insulin sliding scale Subjective Date/time seen: 01/13/21 11:49 Interval history: Juve is resting comfortably in bed. No chest pain or shortness of breath Exam Narrative: WDWN in NAD skin no rash head ncat lungs clear bilaterally cor reg no rub abd BS+ nontender and soft ext no edema. Objective Data Vital Signs Vital Signs: Vital Signs - 24 hr 01/12/21 12:00 01/12/21 12:53 01/12/21 14:00 Temperature 36.2 C L Pulse Rate 92 80 78 Respiratory Rate 21 H Blood Pressure 102/61 Pulse Oximetry 98 97 01/12/21 16:00 01/12/21 17:11 01/12/21 18:00 Temperature 36.2 C L Pulse Rate 86 79 82 Respiratory Rate 22 H Blood Pressure 125/72 Pulse Oximetry 98 98 01/12/21 18:52 01/12/21 19:55 01/12/21 20:00 Temperature 36.3 C L Pulse Rate 79 76 Respiratory Rate 22 H Blood Pressure 131/77 Pulse Oximetry 98 96 01/12/21 20:08 01/12/21 22:00 01/12/21 23:54 Temperature 36.1 C L Pulse Rate 72 67 57 L Respiratory Rate 16 Blood Pressure 125/62 Pulse Oximetry 97 01/13/21 00:00 01/13/21 02:00 01/13/21 03:18 Temperature 36.6 C Pulse Rate 60 73 73 Respiratory Rat
[2021-01-13] MEDS: COSYNTROPIN 0.25 MG/ML VIAL IV PUSH (12:25)
[2021-01-13 13:04] LABS: Glucose Point of Care 165 mg/dl (65-105)
--- NOTE | 2021-01-13 14:57 | PM.IMPN ---
Progress Note: A&P Assessment and Plan (1) Metabolic acidosis: Code(s): E87.2 - Acidosis Status: Acute Assessment and Plan: Unsure etiology. Likely as a result of acute kidney injury. Lactic acid and beta hydroxy butyrate level was within normal range. It has resolved now. He is off bicarbonate now. (2) Acute hypotension: Code(s): I95.9 - Hypotension, unspecified Status: Acute Assessment and Plan: Resolved now with IV fluid resuscitation. Cortisol was low. Court Administrator hep ordered cosyntropin test. (3) ESME (acute kidney injury): Code(s): N17.9 - Acute kidney failure, unspecified Status: Acute Assessment and Plan: Nephrology is following the patient. Their recommendations appreciated. Renal ultrasound showed cortical thinning with simple cyst and 1 complex cyst. Currently getting IV fluids with improvement in his serum creatinine. He might be having chronic kidney disease as well with unclear baseline creatinine. Likely as a result of diabetes and hypertension. He see a rotating field assembler Dr. Coles. (4) Atrial fibrillation: Code(s): I48.91 - Unspecified atrial fibrillation Status: Chronic Assessment and Plan: Continue with home medications (5) Hypertension: Code(s): I10 - Essential (primary) hypertension Status: Chronic Assessment and Plan: Continue home medication with diltiazem and metoprolol I will put her losartan on hold for now. (6) History of CVA (cerebrovascular accident): Code(s): Z86.73 - Personal history of transient ischemic attack (TIA), and cerebral infarction without residual deficits Status: Chronic Assessment and Plan: Resume home medications. Had multiple stroke in the past secondary to atrial fibrillation. Now he has a Watchman device and on aspirin with improvement. (7) History of DVT (deep vein thrombosis): Code(s): Z86.718 - Personal history of other venous thrombosis and embolism Status: Chronic Assessment and Plan: SubQ heparin (8) DM2 (diabetes mellitus, type 2): Code(s): E11.9 - Type 2 diabetes mellitus without complications Status: Chronic Assessment and Plan: Accu-Cheks AC and HS. Resume Levemir and Januvia. Check A1c. Sliding scale insulin. (9) Hyperlipidemia: Code(s): E78.5 - Hyperlipidemia, unspecified Status: Chronic Assessment and Plan: Resume home medications with Lipitor (10) Gout: Code(s): M10.9 - Gout, unspecified Status: Chronic Assessment and Plan: Resume home medication with allopurinol (11) Parkinsons: Code(s): G20 - Parkinson's disease Status: Chronic Assessment and Plan: Resume home medication with levodopa and carbidopa (12) Obstructive sleep apnea: Code(s): G47.33 - Obstructive sleep apnea (adult) (pediatric) Status: Chronic Assessment and Plan: Continue with home CPAP machine and home oxygen. Subjective Date/time seen: 01/13/21 14:57 He was on 3 L of oxygen but his oxygen saturation was in higher 90s. He had some improvement in his renal parameters with creatinine improving to 2.6 from 2.9 yesterday. He was complaining of mild cough and swelling of the legs. He denied have any significant fever chills or shortness of breath. Some of the blood pressure readings are a bit on the higher side. Review of Systems Review of Systems: A comprehensive review of systems has been reviewed with the patient and most of the symptoms are negative except the one's mentioned above in HPI. All systems reviewed & are unremarkable except as noted in HPI and below Exam Narrative: General awake and alert not in acute distress Neck supple CVS S1-S2 no murmur Respiratory no wheezes or crepitation respiration nonlabored GI soft nontender nondistended EMBROIDERER alert oriented x3 and grossly nonfocal neurological exam
[2021-01-13] MEDS: HEPARIN SODIUM 5,000 UNITS/ML VIAL 5000 UNITS SUB-Q ×2 (15:10→21:14)
[2021-01-13] MEDS: INSULIN ASPART (*BKC) 100 UNITS/ML SUB-Q (18:13)
[2021-01-13 18:55] LABS: Glucose Point of Care 206 mg/dl (65-105)
[2021-01-13 21:10] LABS: Glucose Point of Care 308 mg/dl (65-105)
[2021-01-13] MEDS: INSULIN DETEMIR 100 UNITS/ML 40 UNITS SUB-Q (21:13)
[2021-01-14] VITALS (12 sets, daily range): BP systolic 115–147; BP diastolic 67–74; PULSE 60–82; RESP 16–18; TEMP 35.7–36.1; O2SAT 97–100
[2021-01-14 04:56] LABS: Basophils Percent Auto 0.4 % (0.2-1.2); Eosinophils Absolute Auto 0.3 K/mm3 (0-0.3); Eosinophils Percent Auto 3.7 % (0-4.4); Hematocrit 33.3 % (42.0-52.0); Hemoglobin 11.2 g/dL (14.0-18.0); Immature Granulocyte Absolute 0.11 K/mm3 (0.00-0.031); Immature Granulocyte Percent A 1.5 % (0-0.5); Lymphocytes Absolute Auto 2.12 K/mm3 (0.9-3.2); Lymphocytes Percent Auto 29.3 % (18.3-44.2); Mean Corpuscular HGB Conc 33.6 g/dl (32-36); Mean Corpuscular Hemoglobin 29.9 pg (26-34); Mean Corpuscular Volume 88.8 fl (80-100); Mean Platelet Volume 10.6 fl (7.4-10.4); Monocytes Absolute Auto 0.9 K/mm3 (0.1-0.6); Monocytes Percent Auto 12.6 % (2.6-8.5); Neutrophils Absolute Auto 3.8 K/mm3 (1.3-6.7); Neutrophils Percent Auto 52.5 % (45.5-73.1); Platelet Count Result 136 k/mm3 (150-375); Red Blood Count 3.75 M/mm3 (4.6-6.20); Red Cell Distribution Width 17.5 % (11.5-14.5); White Blood Count 7.2 K/mm3 (4.5-10.0)
[2021-01-14 05:08] LABS: Anion Gap 2 mmol/L (8-16); Blood Urea Nitrogen 49 mg/dL (9-20); Calcium 8.5 mg/dL (8.4-10.2); Carbon Dioxide 29 mmol/L (22-30); Chloride 104 mmol/L (98-107); Estimated CRCL calculation 30 ml/min; Estimated Glomerular Filt Rate 28; Glucose 132 mg/dL (65-110); Magnesium 1.9 mg/dL (1.6-2.3); Potassium 3.7 mmol/L (3.4-5.0); Sodium 135 mmol/L (137-145)
[2021-01-14] MEDS: HEPARIN SODIUM 5,000 UNITS/ML VIAL 5000 UNITS SUB-Q ×2 (05:26→12:51)
[2021-01-14] MEDS: ACETAMINOPHEN/CODEINE (*CRX) 300/30 MG TABLET 1 TAB PO (08:24)
[2021-01-14] MEDS: CARBIDOPA/LEVODOPA 25/100 MG TABLET 1 TABLET PO ×2 (08:25→12:51)
[2021-01-14] MEDS: allopurinoL 300 MG TABLET PO (08:25)
[2021-01-14] MEDS: ASPIRIN 81 MG ENTERIC TABLET PO (08:25)
[2021-01-14] MEDS: dilTIAZem HCL CD 180 MG CAP.ER.24H 360 MG PO (08:25)
[2021-01-14] MEDS: ATORVASTATIN 40 MG TABLET 80 MG PO (08:25)
[2021-01-14] MEDS: METOPROLOL TARTRATE 25 MG TABLET PO (08:26)
[2021-01-14] MEDS: BUMETANIDE 0.5 MG TABLET 1.5 MG PO (08:26)
[2021-01-14] MEDS: TIZANIDINE HCL 4 MG TABLET PO (08:26)
[2021-01-14 09:34] LABS: Glucose Point of Care 107 mg/dl (65-105)
[2021-01-14 11:36] LABS: Glucose Point of Care 187 mg/dl (65-105)
--- NOTE | 2021-01-14 12:20 | PM.DS ---
DS: Admitting Diagnosis Discharge Date 01/14/2021 Admitting Diagnosis Metabolic acidosis Hypotension Acute kidney injury Atrial fibrillation Diabetes mellitus Hyperlipidemia Gout History of DVT BPH Obstructive sleep apnea History of Parkinson disease DS: Discharge Diagnosis Discharge Diagnosis (1) Metabolic acidosis: Code(s): E87.2 - Acidosis Status: Acute Assessment and Plan: Unsure etiology. Likely as a result of acute kidney injury. Lactic acid and beta hydroxy butyrate level was within normal range. It has resolved now. He is off bicarbonate now. (2) Acute hypotension: Code(s): I95.9 - Hypotension, unspecified Status: Acute Assessment and Plan: Resolved now with IV fluid resuscitation. Cortisol was low. Cosyntropin test was done which is negative. (3) ESME (acute kidney injury): Code(s): N17.9 - Acute kidney failure, unspecified Status: Acute Assessment and Plan: Sole Trimmer recommendations appreciated. Renal ultrasound showed cortical thinning with simple cyst and 1 complex cyst. Currently getting IV fluids with improvement in his serum creatinine. He is now off IV fluids. His losartan was put on hold which will be continued to be on hold until he see his primary care physician office or his wedding transportation driver Dr. Tru Coles. He might be having chronic kidney disease as well with unclear baseline creatinine. Likely as a result of diabetes and hypertension. He see a wedding transportation driver Dr. Coles. It seems that his baseline creatinine may be around 2.0. (4) Atrial fibrillation: Code(s): I48.91 - Unspecified atrial fibrillation Status: Chronic Assessment and Plan: Continue with home medications with metoprolol (5) Hypertension: Code(s): I10 - Essential (primary) hypertension Status: Chronic Assessment and Plan: Continue home medication with diltiazem and metoprolol I will put his losartan on hold for now. It will be resumed when he see his primary care physician or his wedding transportation driver Dr. Tru Coles. He will need to have a BMP checked in 1 week time which can be done by his primary care physician. (6) History of CVA (cerebrovascular accident): Code(s): Z86.73 - Personal history of transient ischemic attack (TIA), and cerebral infarction without residual deficits Status: Chronic Assessment and Plan: Resume home medications. Had multiple stroke in the past secondary to atrial fibrillation. Now he has a Watchman device and on aspirin. (7) History of DVT (deep vein thrombosis): Code(s): Z86.718 - Personal history of other venous thrombosis and embolism Status: Chronic Assessment and Plan: SubQ heparin (8) DM2 (diabetes mellitus, type 2): Code(s): E11.9 - Type 2 diabetes mellitus without complications Status: Chronic Assessment and Plan: Accu-Cheks AC and HS. Resume Levemir and Januvia. Check A1c. Sliding scale insulin. (9) Hyperlipidemia: Code(s): E78.5 - Hyperlipidemia, unspecified Status: Chronic Assessment and Plan: Resume home medications with Lipitor (10) Gout: Code(s): M10.9 - Gout, unspecified Status: Chronic Assessment and Plan: Resume home medication with allopurinol (11) Parkinsons: Code(s): G20 - Parkinson's disease Status: Chronic Assessment and Plan: Resume home medication with levodopa and carbidopa (12) Obstructive sleep apnea: Code(s): G47.33 - Obstructive sleep apnea (adult) (pediatric) Status: Chronic Assessment and Plan: Continue with home CPAP machine and home oxygen. DS: Summary Hospital Course Hospital Course: As above Time Spent with Patient Time attestation: Total time spent providing and/or coordinating discharge services: > 35 minutes Exam Narrative: General awake and alert not in acute distress Neck supple CVS S1-S2
--- NOTE | 2021-01-14 12:39 | PM.PNNEP ---
Progress Note: A&P Assessment and Plan (1) ESME (acute kidney injury): Code(s): N17.9 - Acute kidney failure, unspecified Status: Acute Assessment and Plan: the patient has acute kidney injury. Renal ultrasound shows cortical thinning, simple cysts, and 1 complex cyst. Urine electrolytes are non pre renal. CPK is not elevated. IV fluids are off. He is eating well. His creatinine continues to improve. (2) Chronic kidney disease: Code(s): N18.9 - Chronic kidney disease, unspecified Status: Acute Assessment and Plan: the patient has chronic kidney disease. He sees Dr. ayoub for this. It is likely due to diabetes and hypertension. We do not know his baseline (3) Acute hypotension: Code(s): I95.9 - Hypotension, unspecified Status: Acute Assessment and Plan: the patient has hypotension. Etiology is unclear. He probably is dehydrated. Cosyntropin test showed good response so he does not have adrenal insufficiency (4) Metabolic acidosis: Code(s): E87.2 - Acidosis Status: Acute Assessment and Plan: Bicarbonate level is back to normal (5) Obstructive sleep apnea: Code(s): G47.33 - Obstructive sleep apnea (adult) (pediatric) Status: Chronic (6) BPH (benign prostatic hyperplasia): Code(s): N40.0 - Benign prostatic hyperplasia without lower urinary tract symptoms Status: Chronic Assessment and Plan: he has a history of this. He has a Alan catheter in. I am okay with this coming in (7) Atrial fibrillation: Code(s): I48.91 - Unspecified atrial fibrillation Status: Chronic Assessment and Plan: his heart rate is fairly well controlled right now. He has a watchman device (8) Hypertension: Code(s): I10 - Essential (primary) hypertension Status: Chronic Assessment and Plan: His blood pressure was low on admission. This is better and antihypertensives are being folded in. (9) History of CVA (cerebrovascular accident): Code(s): Z86.73 - Personal history of transient ischemic attack (TIA), and cerebral infarction without residual deficits Status: Chronic Assessment and Plan: he had multiple strokes in the past related to his atrial fibrillation. Things settle down once he was on blood thinners and then converted to the watchman device. (10) Hyperlipidemia: Code(s): E78.5 - Hyperlipidemia, unspecified Status: Chronic Assessment and Plan: he is on atorvastatin at home (11) DM2 (diabetes mellitus, type 2): Code(s): E11.9 - Type 2 diabetes mellitus without complications Status: Chronic Assessment and Plan: On insulin sliding scale Subjective Date/time seen: 01/14/21 12:39 Interval history: Juve is resting comfortably in bed. No chest pain or shortness of breath Exam Narrative: WDWN in NAD skin no rash or subQ nodules head ncat lungs clear bilaterally cor reg no rub or gallop abd BS+ nontender and soft ext no edema or cyanosis. Objective Data Vital Signs Vital Signs: Vital Signs - 24 hr 01/13/21 14:00 01/13/21 16:00 01/13/21 18:00 Temperature 36.6 C Pulse Rate 62 54 L 72 Respiratory Rate 18 Blood Pressure 155/64 H Pulse Oximetry 97 01/13/21 20:00 01/13/21 21:13 01/13/21 22:00 Temperature 36.1 C L Pulse Rate 71 62 73 Respiratory Rate 16 Blood Pressure 124/66 Pulse Oximetry 99 01/13/21 23:02 01/14/21 00:00 01/14/21 02:00 Temperature 36.3 C L Pulse Rate 72 69 63 Respiratory Rate 15 Blood Pressure 152/67 H Pulse Oximetry 99 01/14/21 03:56 01/14/21 04:00 01/14/21 06:00 Temperature 36.1 C L Pulse Rate 62 66 82 Respiratory Rate 16 Blood Pressure 115/67 Pulse Oximetry 99 01/14/21 08:00 01/14/21 08:21 01/14/21 08:26 Temperature 35.8 C L Pulse Rate 60 82 82 Respiratory Rate 18 Blood Pressure 133/74 Pul
--- NOTE | 2021-01-14 14:48 | PC.NURSE ---
Patient voided after mccain cath removal and prior to discharge.
== END 2021-01-14 14:20 | disposition home or self-care (01) | DRG 315 ==
LOC: ANHED 14:04 → ANHIMU 22:40
PROVIDERS: Family Medicine; Internal Medicine Nephrology; Nurse Practitioner; Admitting Provider Internal Medicine; Emergency Provider Family Medicine; PCP Nurse Practitioner Family; Visit Provider Internal Medicine Critical Care Medicine
DX: I95.9 Hypotension, unspecified (principal); N17.9 Acute kidney failure, unspecified; E87.2 Acidosis; N18.4 Chronic kidney disease, stage 4 (severe); E11.22 Type 2 diabetes mellitus with diabetic chronic kidney disease; I12.9 Hypertensive chronic kidney disease with stage 1 through stage 4 chronic kidney disease, or unspecified chronic kidney disease; F17.210 Nicotine dependence, cigarettes, uncomplicated; I48.91 Unspecified atrial fibrillation; E11.40 Type 2 diabetes mellitus with diabetic neuropathy, unspecified; E78.5 Hyperlipidemia, unspecified; M10.9 Gout, unspecified; G20 Parkinson's disease; N40.0 Benign prostatic hyperplasia without lower urinary tract symptoms; G47.33 Obstructive sleep apnea (adult) (pediatric); R09.02 Hypoxemia; Z23 Encounter for immunization; Z79.4 Long term (current) use of insulin; Z79.899 Other long term (current) drug therapy; Z86.718 Personal history of other venous thrombosis and embolism; Z86.73 Personal history of transient ischemic attack (TIA), and cerebral infarction without residual deficits; Z98.49 Cataract extraction status, unspecified eye
CPT/HCPCS: 36415; 36600; 70450; 71045; 76775; 80048; 80053; 80069; 81001; 82010; 82533; 82550; 82570; 82805; 82948; 83036; 83605; 83735; 83880; 84100; 84156; 84300; 84484; 85025; 85027; 85380; 85610; 87040; 90471; 90653; 93005; 93970; 96361; 96374; 99291; A9270; G0008; J0834; J1644; J1815; J2543; J7030; J7070